=== PATIENT | male | born 1985 | race Caucasian/White ===

== ENCOUNTER 2021-02-22 00:28 | Emergency (ER) | payer SELFPAY ==
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
== END 2021-02-22 00:52 ==
LOC: MW.ED 00:28
DX: Z02.89 Encounter for other administrative examinations (principal)
CPT/HCPCS: 99283